=== PATIENT | female | born 2005 | race African-American/Black ===

== ENCOUNTER 2025-06-05 17:30 | Observation (INO) | payer OTHER ==
[2025-06-05 18:32] VITALS: BMI 42.5
[2025-06-05 18:57] LABS: Fetal Membranes Rupture No Membranes Rupture (No Rupture)
[2025-06-05] MEDS ORDERED: Methylergonovine 0.2 MG/ML VIAL IM PRN (21:38)
[2025-06-05] MEDS ORDERED: Carboprost 250 MCG/ML AMP IM PRN (21:38)
[2025-06-05] MEDS ORDERED: Diphenoxylate HCl/Atropine Tablet PO PRN ×2 (21:38)
[2025-06-05] MEDS ORDERED: Ondansetron PF 4 MG/2 ML Vial IVP PRN (21:38)
[2025-06-05] MEDS ORDERED: Tranexamic Acid 1,000 MG/10 ML VIAL IVP PRN (21:38)
[2025-06-05] MEDS ORDERED: hydrALAZINE 20 MG/ML VIAL SLOW IVP PRN (21:38)
[2025-06-05] MEDS ORDERED: Oxytocin 30 units/NS 500 ML 500 ML IV SCH (21:45)
[2025-06-05 22:14] LABS: #Basophils Less than 0.03 10x3/uL (0.0-0.2); #Eosinophils 0.11 10x3/uL (0.0-0.5); #Monocytes 0.78 10x3/uL (0.0-1.1); #Neutrophils 6.83 10x3/uL (1.5-8.4); %Basophils 0.1 % (0.0-2.0); %Eosinophils 1.1 % (0.0-6.0); %Lymphocytes 22.9 % (18.0-47.0); %Monocytes 7.7 % (0.0-10.0); %Neutrophils 67.6 % (40.0-75.0); Hematocrit 32.3 % (34.9-44.5); Hemoglobin 10.6 g/dL (12.0-15.5); Mean Corpuscular Hemoglobin 27.7 pg (27.0-33.0); Mean Corpuscular Volume 84.3 fL (81.6-98.3); Platelet Count 218 10x3/uL (150-450); Red Blood Cell (RBC) Count 3.83 10x6/uL (3.90-5.03); White Blood Cell (WBC) Count 10.10 10x3/uL (3.5-10.5)
[2025-06-05 22:58] LABS: ALT (SGPT) 42 U/L (Less than 34); AST (SGOT) 34 U/L (11-34); Albumin 3.3 g/dL (3.1-4.5); Alkaline Phosphatase 142 U/L (40-100); Anion Gap 13 mmol/L (10-20); BUN (Urea Nitrogen) 5 mg/dL (7.0-18.7); Bilirubin, Total 0.3 mg/dL (0.3-1.2); Calc. Creatinine Clearance 295 mL/min (70-130); Calcium 9.3 mg/dL (7.8-10.44); Carbon Dioxide 19 mmol/L (22-29); Chloride 106 mmol/L (98-107); Globulin 3.8 g/dL (2.4-3.5); Glucose 89 mg/dL (70-105); Potassium 3.9 mmol/L (3.5-5.1); Sodium 134 mmol/L (136-145)
[2025-06-05 22:59] LABS: Hep B Surf Ag - L&D Non-Reactive S/CO (NonReactive); Syphilis Antibody Index 0.09 S/CO (<1.00 Non-Reactive)
[2025-06-05 23:10] LABS: HIV (1/2) Antibody/Antigen Non-Reactive (NonReactive); HIV 1/2 INDEX 0.16 S/CO (<1.00)
[2025-06-06] MEDS: Clotrimazole 2% 3 Day Vag Cr 22.2 GM TUBE VAG SCH (06:53)
[2025-06-06 11:55] VITALS: BP 117/60; TEMP 97.5
[2025-06-06] MEDS ORDERED: Clotrimazole 2% 3 Day Vag Cr 22.2 GM TUBE VAG SCH (21:00)
== END 2025-06-06 13:35 | disposition home or self-care (01) ==
LOC: CSHLD/OP 17:30 → CSHLD 22:51 → CSHANTE 06-06 00:30
PROVIDERS: ADMIT Family Medicine; ATTEND Family Medicine
DX: O41.03X0 Oligohydramnios, third trimester, not applicable or unspecified (principal); O47.02 False labor before 37 completed weeks of gestation, second trimester; O99.213 Obesity complicating pregnancy, third trimester; O99.891 Other specified diseases and conditions complicating pregnancy; R73.03 Prediabetes; Z3A.35 35 weeks gestation of pregnancy
CPT/HCPCS: 76819; 80053; 83036; 84112; 86780; 86850; 86900; 86901; 87070; 87205; 87340; 87389; 87480; 87510; 87660; 99285; G0378; J7120